=== PATIENT | female | born 1955 | race Hispanic/Latino ===

== ENCOUNTER → 2024-02-08 | Outpatient (CLI) | payer BC ==
[~2024-02-08] MED LIST: LEVO0.5P2 MC; LEVO50TA11 PO
== END | disposition home or self-care (01) ==
LOC: SHCH 10:22
PROVIDERS: ATTEND Student in an Organized Health Care Education/Training Program
DX: R06.02 Shortness of breath (principal)
CPT/HCPCS: 93306

== ENCOUNTER → 2024-07-18 | Outpatient (CLI) | payer BC ==
[2024-07-18 10:04] LABS: ALBUMIN 3.6 g/dL (3.5-5.0); BILIRUBIN,TOTAL 0.6 mg/dL (0.2-1.0); CREATININE 0.7 mg/dL (0.5-1.0); POTASSIUM 4.6 mmol/L (3.5-5.1); TOTAL PROTEIN, SERUM 7.4 g/dL (6.0-8.3)
== END | disposition home or self-care (01) ==
LOC: LAB 08:17
PROVIDERS: ATTEND Student in an Organized Health Care Education/Training Program
DX: Z01.812 Encounter for preprocedural laboratory examination (principal); I87.1 Compression of vein; I87.2 Venous insufficiency (chronic) (peripheral)
CPT/HCPCS: 36415; 80053; 80061

== ENCOUNTER → 2024-07-23 | Outpatient (CLI) | payer BC ==
[~2024-07-23] MED LIST changes: +IOHEXOL 350 MG/ML 100ML INFUS..BTL IV ONE
== END | disposition home or self-care (01) ==
LOC: RAH 09:21
PROVIDERS: ATTEND Student in an Organized Health Care Education/Training Program
DX: R07.9 Chest pain, unspecified (principal); I10 Essential (primary) hypertension; M47.815 Spondylosis without myelopathy or radiculopathy, thoracolumbar region
CPT/HCPCS: 75574; Q9967

== ENCOUNTER → 2024-11-18 | Outpatient (CLI) | payer BC ==
[~2024-11-18] MED LIST changes: -IOHEXOL 350 MG/ML 100ML INFUS..BTL IV ONE
[2024-11-18 12:59] LABS: CHOLESTEROL 199 mg/dL (<200); HDL CHOLESTEROL 49 mg/dL (35-85); LDL DIRECT 134 mg/dL (0-99); TRIGLYCERIDES 113 mg/dL (30-200)
== END | disposition home or self-care (01) ==
LOC: LAB 10:15
PROVIDERS: ATTEND Student in an Organized Health Care Education/Training Program
DX: E78.5 Hyperlipidemia, unspecified (principal)
CPT/HCPCS: 36415; 80061